=== PATIENT | female | born 1950 | race Caucasian/White ===

== ENCOUNTER 2023-03-01 18:30 | Inpatient (IN) | payer OTHER, SELFPAY ==
[2023-03-01 18:00] VITALS: BP 145/72; PULSE 85; RESP 20; TEMP 36.1; O2SAT 98
[2023-03-01 18:51] VITALS: BMI 24.5
--- NOTE | 2023-03-01 18:53 | PC.NURSE ---
Patient arrived from [facility] ED via EMS, vitals obtained, skin check completed, pt oriented to unit and introduced to staff reinforcement needed.
--- NOTE | 2023-03-01 21:18 | PC.ADMIT ---
Addendum entered by Prosper Robles RN 03/01/23 21:51: Patient took her medications without issues but was very hesitant for a blood sugar test and pulled back her finger after the stick. RN was able to get a drop of blood but there was a flow error on the glucometer and the patient declined a second stick. She is eating and drinking and not at risk for hypoglycemia. She appears to be wide awake and sitting on the edge of her bed. Trazadone administered to help her sleep. Will continue to monitor tonight, address any issues that may arrise, and re-evaluate care in the morning. Original Note: Admission assessment through use of a Cosmetics Supervisor. Patient speaks/ understands very limited [place]i. 72 yr old [place] Speaking female presented to [facility] via [facility] for continued Behavioral Health support. She has a medical hx of hypertension, DM, GERD, arthritis, fibromyalgia. Psychiatric hx of unspecified psychotic disorder, Paranoid Schizophrenia, Paranoid delusions, Auditory hallucinations, acute delerium with multiple inpatient psychiatric hospitalizations with medication non compliance. Patient has been reportedly increasingly paranoid and failing to thrive at home. Patients son Aquiles attempted to bring her in to [facility] for crisis eval but they deemed her non suicidal. Patient has visiting nurse a few times a week. She has been hallucinating and losing substantial weight. Family concerned for her well being. Upon admission, patient is sitting in her room, alert, agreeable to speak with. She appears well groomed, no odor and independent. Her skin looks intact. She is calm but appears gaurded and slightly suspicious. Will not answer personal questions due to the fact that everyone is listening although her roomate is in bed. Patient is oriented to self and month. She cannot answer where she is or where she lives except in an apartment . She states that she lives alone but that she has family who come see her. She cannot give any information as to her family members, phone numbers, who takes care of her at home etc. Her thoughts are disorganized. She appears to be a little paranoid and distracted. She states she smokes and cannot answer about nicotine replacement because there must be a place you can go to smoke here . She is ambulatory without assist, skin is intact. she is drinking water and requesting ice cream, food encouraged.
[2023-03-01] MEDS: Benztropine Mesylate 0.5 MG TABLET PO (21:42)
[2023-03-01] MEDS: risperiDONE 1 MG TABLET PO (21:42)
[2023-03-01] MEDS: traZODone HCL 50 MG TABLET PO (21:42)
[2023-03-02 06:00] VITALS: BP 123/62; PULSE 93; RESP 18; O2SAT 98
[2023-03-02] MEDS: Benztropine Mesylate 0.5 MG TABLET PO ×2 (08:46→20:50)
[2023-03-02] MEDS: risperiDONE 1 MG TABLET PO ×2 (08:46→20:50)
--- NOTE | 2023-03-02 08:57 | HO.PSYADMNOT ---
HPI Date of Service: 03/02/23 Chief Complaint: F29 Sources of Information: patient interviewed, chart reviewed and crisis/core team assessment reviewed HPI Subjective Notes: [place] Warning and Section 12B Narrative: The patient is a 72-year-old female with a past history of schizophrenia paranoid type who was referred to the emergency room of [facility] by her family since she was non compliant with her medications for at least 9 weeks. According to the crisis assessment, his family called crisis and stated the patient had not been taking her medications and she relapse of her psychotic symptoms elicited by disorganized behavior, hallucinations, responding to internal stimuli and unable to take care of herself. She was rushed to the emergency room of [facility], medically clear and transferred to crisis for assessment. While she was in the unit, the MD titrated slowly his Risperdal. On interview, the patient reports that she is feeling fine she looks pleasantly confused and stated that she has not been taking her medications since she lost her scripts. She had poor eye contact refused to engage too much in the conversation. She had thought blocking and she was internally preocupied. She admitted sporadic auditory hallucinations and paranoia. We could not get more collateral information at this moment. We will place the patient on 15 minutes checks and continue with his regular medications as per medication reconciliation form. We will try to gather more collateral information by his family. At this moment, the patient is on a Section 12 be and she has refused to sign the conditional voluntary yet. Past Psychiatric History: The patient has several admissions into the hospital for psychotic decompensation she carries a diagnosis of schizophrenia paranoid type. She receive outpatient services. Medical Evaluation Reviewed: Yes [facility] Family History: Denies Social History: The patient has good social support, her relatives called crisis but she lives alone. She has chronic mental illness. Substance History: Denies Trauma History: Refused to elaborate Diagnostics Vital Signs (24Hr): Vital Signs - 24 hr 03/01/23 18:00 Temperature 97.0 F Pulse Rate 85 Respiratory Rate 20 Blood Pressure 145/72 H Pulse Oximetry 98 Oxygen Delivery Method Room Air BMI result Body Mass Index 24.5 Meds/Allergies Allergies Allergies Allergy/AdvReac Type Severity Reaction Status Date / Time No Known Allergies Allergy Verified 03/01/23 17:58 Mental Status Exam Mental Status Exam Patient Appearance: Disheveled and Unkempt Patient Orientation: Person and Situation Level of Consciousness: Awake Patient Behavior: Guarded and Passive Mood Description: Withdrawn Affect Description: Constricted Patient Cognition Impaired: Yes Ability to Follow Directions: Good Speech Pattern: Clear Hallucinations: Auditory Delusions: Paranoid Ideation and Ideas of Reference Thought Process: Illogical and Distracted Thought Content: positive for [place], positive for Poverty of Content and positive for Thought Blocking Judgement: Poor Assessment & Plan Assessment & Plan (1) Schizophrenia: Status: Acute Code(s): F20.9 - Schizophrenia, unspecified Plan The patient is an elderly descent female with a prior history of schizophrenia who was brought into the facility from the emergency room of [facility] since she was noncompliant with medications for 9 weeks. According to the crisis assessment the patient had relapse on her psychotic symptoms with any inability to take care of herself, losing weight and poor safety awareness. Plan 1. Gather collateral information. The patient is a very poor historian and we will need to gather more collateral information from her family. 2. Continue Risperdal as prescribed. 3. Continue with medical workout. 4. Reassessment with results. 5. Continue regular observation. Patient educated on: diagnosis Informed Consent: further education needed Reason for continued inpatient stay Substantial Risk for: inability to function, rapid decompensation and med/psych decompensation Statement Statement: I have reviewed the history and physical and performed a pertinent examination on my patient. No changes have occurred unless specified. If the History and Physical was not performed prior to admission, the Hospitalist's service will be consulted for completing the admission physical. Time Spent With Patient Time: Total time managing care of this patient today __30__ minutes.
[2023-03-02 09:32] LABS: Cholesterol 198 mg/dL; HDL Cholesterol 38 mg/dL; LDL Cholesterol Calculated 121 mg/dl; Magnesium 2.2 mg/dL (1.6-2.6); Triglycerides 198 mg/dL
[2023-03-02 09:40] LABS: Estimated Average Glucose 126 mg/dL
[2023-03-02 10:10] LABS: Folate 11.8 ng/mL (> or = 4.0); Vitamin B12 436 pg/mL (200-900)
--- NOTE | 2023-03-02 11:21 | P.CONHOSP_ITS ---
History of Present Illness Data of Consult Service Date: 03/02/23 Primary Care Provider: Unknown Physician HPI Reason for consult: Admission H&P Pt is a 72-year-old female with a PMH significant for? who is admitted to [facility] for . Medical consult for admission H&P. ? Labs reviewed, significant for PMFSH Social History Household Members: Unknown / Unable to assess Housing: Apartment Unable to assess alcohol history related to: Unknown Patient Tobacco Use Status: Current someday Tobacco user Tobacco use type: Cigarette Smoked in Last 30 Days: Yes Patient Interested in Nicotine Replacement: No Patient Given Instructions on How to Stop Smoking: Yes Date Education Initiated: 03/01/23 Second Hand Smoke Exposure: Yes Use of substances other than those prescribed or required for medical reasons: No Currently Displaying Signs/Symptoms of Drug Intoxication Withdrawal: No Advance Directives: No Advance Directives Information Provided: Yes Do you have thoughts of harming others: None Do you have a plan to hurt others: No Plan Recently lost weight without trying: Unsure Nutrition Risks: No Nutritional Risk Patient : No Meds Allergies Allergy/AdvReac Type Severity Reaction Status Date / Time No Known Allergies Allergy Verified 03/01/23 17:58 Active Medications: Current Medications Acetaminophen (Acetaminophen 325 Mg Tablet) 650 mg PO Q6H PRN PRN Reason: Headache/Pain Mild Scale (1-3) Al Hydroxide/Mg Hydroxide (Magnesium Hydrox/Alum Hydrox 30 Ml Oral.Susp) 30 ml PO Q6H PRN PRN Reason: Heartburn/Nausea Benztropine Mesylate (Benztropine Mesylate 0.5 Mg Tablet) 0.5 mg PO BID COUNTS INCLUDE 234 BEDS AT THE [facility] Last Admin: 03/02/23 08:46 Dose: 0.5 mg Hydroxyzine HCl (Hydroxyzine Hcl 25 Mg Tablet) 25 mg PO Q6H PRN PRN Reason: Anxiety Magnesium Hydroxide (Milk Of Magnesia 30 Ml Oral.Susp) 30 ml PO DAILY PRN PRN Reason: Constipation Risperidone (Risperidone 1 Mg Tablet) 1 mg PO BID COUNTS INCLUDE 234 BEDS AT THE [facility] Last Admin: 03/02/23 08:46 Dose: 1 mg Trazodone HCl (Trazodone Hcl 50 Mg Tablet) 50 mg PO BEDTIME MRX1 PRN PRN Reason: Insomnia Last Admin: 03/01/23 21:42 Dose: 50 mg Physical Exam Vital Signs and Narrative: Vital Signs: Last Vital Signs Temp 97.0 F 03/01/23 18:00 Pulse 85 03/01/23 18:00 Resp 20 03/01/23 18:00 BP 145/72 H 03/01/23 18:00 Pulse Ox 98 03/01/23 18:00 O2 Del Method Room Air 03/01/23 18:00 BMI result Body Mass Index 24.5 Results Labs Labs: Laboratory Results - last 24 hr 03/02/23 03/02/23 03/02/23 09:02 09:02 09:02 Estimat Average Glucose 126 Hemoglobin A1c % 6.0 Magnesium 2.2 Triglycerides 198 Cholesterol 198 LDL Cholesterol, Calc 121 HDL Cholesterol 38 Vitamin B12 436 Folate 11.8 Assessment and Plan Time Spent With Patient Time: Total time managing care of this patient today ____ minutes.
--- NOTE | 2023-03-02 16:26 | PM.EVENT ---
Event Note Date of Service: 03/02/23 Event Note: Pt is a 72-year-old female with a PMH significant for?HTN, diabetes type 2, HLD, GERD, arthritis, and fibromyalgia who is admitted to [facility] for increased paranoia, hallucinations, delusions, and disorganized thinking. Patient has been noncompliant with psychotropic medication for the past 9 weeks. Patient declined medical history and physical. Says she was ?too tired? and did not want to speak to anyone. Patient stated she did not have any acute medical complaints at this time. Thank you for allowing us to participate in the care of this patient. Signing off at this time. Please re-consult if any acute medical issues arise.. Time Spent With Patient Time: Total time managing care of this patient today ____ minutes.
[2023-03-02 16:31] LABS: Glucose, Whole Blood 92 mg/dL (60-115)
[2023-03-02 18:00] VITALS: BP 117/61; PULSE 76; RESP 18; TEMP 36.4; O2SAT 95
[2023-03-02 20:24] LABS: Glucose, Whole Blood 116 mg/dL (60-115)
[2023-03-03] MEDS: traZODone HCL 50 MG TABLET PO ×2 (01:58→22:08)
[2023-03-03] MEDS: hydrOXYzine HCL 25 MG TABLET PO ×2 (01:58→22:08)
[2023-03-03 08:28] VITALS: BP 113/68; PULSE 106; RESP 20; TEMP 35.8; O2SAT 96
[2023-03-03] MEDS: risperiDONE 1 MG TABLET PO ×2 (08:53→22:08)
[2023-03-03] MEDS: Benztropine Mesylate 0.5 MG TABLET PO ×2 (08:53→22:08)
--- NOTE | 2023-03-03 11:19 | HO.PSYCHPN ---
Subjective Subjective Date of Service: 03/03/23 Reason For Visit: F29 Subjective Notes: Section 12B Interim History: The nursing staff reported the patient slept well last night she has been isolative most of the time in her room. On interview the patient denies side effects with the current medications she is on Risperdal 1 mg p.o. b.i.d.. We are going to try to gather collateral information. Mental Status Exam Mental Status Exam Patient Appearance: Well Grooomed and Appropriate Patient Orientation: Person and Situation Level of Consciousness: Awake and Appropriate Patient Behavior: Guarded and Passive Mood Description: Calm Affect Description: Constricted Patient Cognition Impaired: Yes Ability to Follow Directions: Good Speech Pattern: Clear and Soft-Spoken Hallucinations: Auditory Delusions: Paranoid Ideation and Ideas of Reference Thought Process: Distracted and Slowed Thinking Thought Content: positive for Poverty of Content and positive for Thought Blocking Judgement: Fair Diagnostics Vital Signs (24Hr): Vital Signs - 24 hr 03/02/23 18:00 03/03/23 08:28 Temperature 97.6 F 96.5 F L Pulse Rate 76 106 H Respiratory Rate 18 20 Blood Pressure 117/61 113/68 Pulse Oximetry 95 96 Oxygen Delivery Method Room Air Room Air BMI result Body Mass Index 24.5 Labs Labs: Laboratory Results - last 48 hr 03/02/23 03/02/23 03/02/23 09:02 09:02 09:02 POC Glucose Estimat Average Glucose 126 Hemoglobin A1c % 6.0 Magnesium 2.2 Triglycerides 198 Cholesterol 198 LDL Cholesterol, Calc 121 HDL Cholesterol 38 Vitamin B12 436 Folate 11.8 03/02/23 03/02/23 16:29 20:14 POC Glucose 92 116 H Estimat Average Glucose Hemoglobin A1c % Magnesium Triglycerides Cholesterol LDL Cholesterol, Calc HDL Cholesterol Vitamin B12 Folate Medications Medications Current Medications Acetaminophen (Acetaminophen 325 Mg Tablet) 650 mg PO Q6H PRN PRN Reason: Headache/Pain Mild Scale (1-3) Al Hydroxide/Mg Hydroxide (Magnesium Hydrox/Alum Hydrox 30 Ml Oral.Susp) 30 ml PO Q6H PRN PRN Reason: Heartburn/Nausea Benztropine Mesylate (Benztropine Mesylate 0.5 Mg Tablet) 0.5 mg PO BID ASUNCION Last Admin: 03/03/23 08:53 Dose: 0.5 mg Hydroxyzine HCl (Hydroxyzine Hcl 25 Mg Tablet) 25 mg PO Q6H PRN PRN Reason: Anxiety Last Admin: 03/03/23 01:58 Dose: 25 mg Magnesium Hydroxide (Milk Of Magnesia 30 Ml Oral.Susp) 30 ml PO DAILY PRN PRN Reason: Constipation Risperidone (Risperidone 1 Mg Tablet) 1 mg PO BID ASUNCION Last Admin: 03/03/23 08:53 Dose: 1 mg Trazodone HCl (Trazodone Hcl 50 Mg Tablet) 50 mg PO BEDTIME MRX1 PRN PRN Reason: Insomnia Last Admin: 03/03/23 01:58 Dose: 50 mg Allergies Allergies Allergy/AdvReac Type Severity Reaction Status Date / Time No Known Allergies Allergy Verified 03/01/23 17:58 Assessment & Plan Assessment & Plan (1) Schizophrenia: Status: Acute Code(s): F20.9 - Schizophrenia, unspecified Plan The patient is an elderly descent female with a prior history of schizophrenia who was brought into the facility from the emergency room of [facility] since she was noncompliant with medications for 9 weeks. According to the crisis assessment the patient had relapse on her psychotic symptoms with any inability to take care of herself, losing weight and poor safety awareness. Plan 1. Gather collateral information. The patient is a very poor historian and we will need to gather more collateral information from her family. 2. Continue Risperdal as prescribed. We are going to increase it in a few days. 3. Continue with medical workout. 4. Reassessment with results. 5. Continue regular observation. Reason for continued inpatient stay Substantial Risk for: inability to function, rapid decompensation and med/psych decompensation Time Spent With Patient Time: Total time managing care of this patient today _20___ minutes.
[2023-03-03 21:56] VITALS: BP 95/53; PULSE 90; RESP 18; TEMP 36.1; O2SAT 97
[2023-03-03] MEDS: Acetaminophen 325 MG TABLET 650 MG PO (22:09)
[2023-03-03 22:13] VITALS: BP 121/57; PULSE 73
[2023-03-04 09:09] VITALS: BP 113/66; PULSE 82; RESP 16; TEMP 36.6; O2SAT 99
[2023-03-04] MEDS: risperiDONE 1 MG TABLET PO ×2 (09:10→21:20)
[2023-03-04] MEDS: Benztropine Mesylate 0.5 MG TABLET PO ×2 (09:10→21:20)
--- NOTE | 2023-03-04 11:55 | HO.PSYCHPN ---
Subjective Subjective Date of Service: 03/04/23 Reason For Visit: F29 Subjective Notes: Section 12B Interim History: Patient was seen and discussed in rounds. Records and plans were reviewed. She was seen with the help of an historic interpreter. She has been irritable at times but mostly quiet. She has some self dialogue. She has been constipated and I will order lactulose. No other changes were made Review of Systems Review of Systems Constipation Yes all other systems are reviewed and are negative Mental Status Exam Mental Status Exam Patient Appearance: Well Grooomed and Appropriate Patient Orientation: Person and Situation Level of Consciousness: Awake and Appropriate Patient Behavior: Guarded and Passive Mood Description: Calm Affect Description: Constricted Patient Cognition Impaired: Yes Ability to Follow Directions: Good Speech Pattern: Clear and Soft-Spoken Hallucinations: Auditory Delusions: Paranoid Ideation and Ideas of Reference Thought Process: Distracted and Slowed Thinking Thought Content: positive for Poverty of Content and positive for Thought Blocking Judgement: Fair Diagnostics Vital Signs (24Hr): Vital Signs - 24 hr 03/03/23 21:56 03/03/23 22:13 03/04/23 09:09 Temperature 96.9 F 97.9 F Pulse Rate 90 73 82 Respiratory Rate 18 16 Blood Pressure 95/53 L 121/57 L 113/66 Pulse Oximetry 97 99 Oxygen Delivery Method Room Air Room Air BMI result Body Mass Index 24.5 Labs Labs: Laboratory Results - last 48 hr 03/02/23 03/02/23 16:29 20:14 POC Glucose 92 116 H Medications Medications Current Medications Acetaminophen (Acetaminophen 325 Mg Tablet) 650 mg PO Q6H PRN PRN Reason: Headache/Pain Mild Scale (1-3) Last Admin: 03/03/23 22:09 Dose: 650 mg Al Hydroxide/Mg Hydroxide (Magnesium Hydrox/Alum Hydrox 30 Ml Oral.Susp) 30 ml PO Q6H PRN PRN Reason: Heartburn/Nausea Benztropine Mesylate (Benztropine Mesylate 0.5 Mg Tablet) 0.5 mg PO BID ASUNCION Last Admin: 03/04/23 09:10 Dose: 0.5 mg Hydroxyzine HCl (Hydroxyzine Hcl 25 Mg Tablet) 25 mg PO Q6H PRN PRN Reason: Anxiety Last Admin: 03/03/23 22:08 Dose: 25 mg Magnesium Hydroxide (Milk Of Magnesia 30 Ml Oral.Susp) 30 ml PO DAILY PRN PRN Reason: Constipation Risperidone (Risperidone 1 Mg Tablet) 1 mg PO BID ASUNCION Last Admin: 03/04/23 09:10 Dose: 1 mg Trazodone HCl (Trazodone Hcl 50 Mg Tablet) 50 mg PO BEDTIME MRX1 PRN PRN Reason: Insomnia Last Admin: 03/03/23 22:08 Dose: 50 mg Allergies Allergies Allergy/AdvReac Type Severity Reaction Status Date / Time No Known Allergies Allergy Verified 03/01/23 17:58 Assessment & Plan Assessment & Plan (1) Schizophrenia: Status: Acute Code(s): F20.9 - Schizophrenia, unspecified Plan The patient is an elderly descent female with a prior history of schizophrenia who was brought into the facility from the emergency room of [facility] since she was noncompliant with medications for 9 weeks. According to the crisis assessment the patient had relapse on her psychotic symptoms with any inability to take care of herself, losing weight and poor safety awareness. 03/04: Continue current regimen and plans. Add lactulose 15 cc daily for 3 days Plan 1. Gather collateral information. The patient is a very poor historian and we will need to gather more collateral information from her family. 2. Continue Risperdal as prescribed. We are going to increase it in a few days. 3. Continue with medical workout. 4. Reassessment with results. 5. Continue regular observation. Reason for continued inpatient stay Substantial Risk for: inability to function and med/psych decompensation Time Spent With Patient Time: Total time managing care of this patient today ____ minutes.
[2023-03-04 20:15] VITALS: BP 130/80; PULSE 86; RESP 16; TEMP 36.1; O2SAT 97
[2023-03-05 06:00] VITALS: BP 108/60; PULSE 88; RESP 16; TEMP 36.7; O2SAT 99
[2023-03-05] MEDS: Benztropine Mesylate 0.5 MG TABLET PO ×2 (08:42→21:00)
[2023-03-05] MEDS: risperiDONE 1 MG TABLET PO ×2 (08:42→21:00)
--- NOTE | 2023-03-05 11:45 | P.PNPSI_ITS ---
Subjective Subjective Date of Service: 03/05/23 Reason For Visit: F29 Subjective Notes: Section 12B Interim History: Patient was seen and discussed in rounds. Records and plans were reviewed. She was seen with the help of an refrigeration supervisor. She continues to be somewhat paranoid and suspicious. She is responding to self stimuli and has self dialogue. She is irritable at times. Affect is flat. Eating and sleeping adequately. No behavioral issues. No changes were made today Review of Systems Review of Systems Yes Unobtainable due to mental status Mental Status Exam Mental Status Exam Patient Appearance: Well Grooomed and Appropriate Patient Orientation: Person and Situation Level of Consciousness: Awake and Appropriate Patient Behavior: Guarded and Passive Mood Description: Calm Affect Description: Constricted Patient Cognition Impaired: Yes Ability to Follow Directions: Good Speech Pattern: Clear and Soft-Spoken Hallucinations: Auditory Delusions: Paranoid Ideation and Ideas of Reference Thought Process: Distracted and Slowed Thinking Thought Content: positive for Poverty of Content and positive for Thought Blocking Judgement: Fair Diagnostics Vital Signs (24Hr): Vital Signs - 24 hr 03/04/23 20:15 03/05/23 06:00 Temperature 97 F 98.1 F Pulse Rate 86 88 Respiratory Rate 16 16 Blood Pressure 130/80 108/60 Pulse Oximetry 97 99 Oxygen Delivery Method Room Air Room Air BMI result Body Mass Index 24.5 Medications Medications Current Medications Acetaminophen (Acetaminophen 325 Mg Tablet) 650 mg PO Q6H PRN PRN Reason: Headache/Pain Mild Scale (1-3) Last Admin: 03/03/23 22:09 Dose: 650 mg Al Hydroxide/Mg Hydroxide (Magnesium Hydrox/Alum Hydrox 30 Ml Oral.Susp) 30 ml PO Q6H PRN PRN Reason: Heartburn/Nausea Benztropine Mesylate (Benztropine Mesylate 0.5 Mg Tablet) 0.5 mg PO BID ASUNCION Last Admin: 03/05/23 08:42 Dose: 0.5 mg Hydroxyzine HCl (Hydroxyzine Hcl 25 Mg Tablet) 25 mg PO Q6H PRN PRN Reason: Anxiety Last Admin: 03/03/23 22:08 Dose: 25 mg Lactulose (Lactulose 20 Gm/30 Ml Solution) 10 gm PO DAILY ASUNCION Stop: 03/07/23 12:59 Last Admin: 03/05/23 08:41 Dose: Not Given Magnesium Hydroxide (Milk Of Magnesia 30 Ml Oral.Susp) 30 ml PO DAILY PRN PRN Reason: Constipation Risperidone (Risperidone 1 Mg Tablet) 1 mg PO BID ASUNCION Last Admin: 03/05/23 08:42 Dose: 1 mg Trazodone HCl (Trazodone Hcl 50 Mg Tablet) 50 mg PO BEDTIME MRX1 PRN PRN Reason: Insomnia Last Admin: 03/03/23 22:08 Dose: 50 mg Allergies Allergies Allergy/AdvReac Type Severity Reaction Status Date / Time No Known Allergies Allergy Verified 03/01/23 17:58 Assessment & Plan Assessment & Plan (1) Schizophrenia: Status: Acute Code(s): F20.9 - Schizophrenia, unspecified Plan The patient is an elderly descent female with a prior history of schizophrenia who was brought into the facility from the emergency room of [facility] since she was noncompliant with medications for 9 weeks. According to the crisis assessment the patient had relapse on her psychotic symptoms with any inability to take care of herself, losing weight and poor safety awareness. 03/04: Continue current regimen and plans. Add lactulose 15 cc daily for 3 days Plan 1. Gather collateral information. The patient is a very poor historian and we will need to gather more collateral information from her family. 2. Continue Risperdal as prescribed. We are going to increase it in a few days. 3. Continue with medical workout. 4. Reassessment with results. 5. Continue regular observation. 03/05: Continue current plans and regimen Reason for continued inpatient stay Substantial Risk for: inability to function Time Spent With Patient Time: Total time managing care of this patient today ____ minutes.
[2023-03-05 18:00] VITALS: BP 128/74; PULSE 88; RESP 16; TEMP 35.8; O2SAT 95
[2023-03-06 07:57] VITALS: PULSE 102; RESP 18; TEMP 36.2; O2SAT 95
[2023-03-06] MEDS: hydrOXYzine HCL 25 MG TABLET PO (08:40)
[2023-03-06] MEDS: Acetaminophen 325 MG TABLET 650 MG PO (08:40)
[2023-03-06] MEDS: Benztropine Mesylate 0.5 MG TABLET PO ×2 (08:40→20:08)
[2023-03-06] MEDS: risperiDONE 1 MG TABLET PO (08:40)
[2023-03-06] MEDS: Loperamide HCl 2 MG CAPSULE PO (09:27)
--- NOTE | 2023-03-06 14:49 | HO.PSYCHPN ---
Subjective Subjective Date of Service: 03/06/23 Reason For Visit: F29 Subjective Notes: Section 7, Section 8 and Section 12B Interim History: The nursing staff reported the patient had been hostile in groups, reactive and irritable of times suspicious. The staff has noticed that she has self dialogue some response to internal stimuli. The director social welfare reported that her son reported that she had been off medications for 9 weeks and she presently gets admitted in the same presentation. Today the staff tried to approach her and try to sign a conditional voluntary but she refused. She had been fully compliant with treatment eating well and sleeping well but she has refused to sign any papers so we are finding for Section 7 and 8. On interview the patient denies new symptoms still psychotic and internally preoccupied but easily redirectable. Mental Status Exam Mental Status Exam Patient Appearance: Well Grooomed and Appropriate Patient Orientation: Person and Situation Level of Consciousness: Awake Patient Behavior: Guarded, Cooperative and Passive Mood Description: Withdrawn Affect Description: Labile Patient Cognition Impaired: Yes Ability to Follow Directions: Good Speech Pattern: Clear Hallucinations: Auditory Delusions: Paranoid Ideation Thought Process: Illogical and Distracted Thought Content: positive for [place] Judgement: Poor Diagnostics Vital Signs (24Hr): Vital Signs - 24 hr 03/05/23 18:00 03/06/23 07:57 Temperature 96.5 F L 97.1 F Pulse Rate 88 102 H Respiratory Rate 16 18 Blood Pressure 128/74 Pulse Oximetry 95 95 Oxygen Delivery Method Room Air Room Air BMI result Body Mass Index 24.5 Medications Medications Current Medications Acetaminophen (Acetaminophen 325 Mg Tablet) 650 mg PO Q6H PRN PRN Reason: Headache/Pain Mild Scale (1-3) Last Admin: 03/06/23 08:40 Dose: 650 mg Al Hydroxide/Mg Hydroxide (Magnesium Hydrox/Alum Hydrox 30 Ml Oral.Susp) 30 ml PO Q6H PRN PRN Reason: Heartburn/Nausea Benztropine Mesylate (Benztropine Mesylate 0.5 Mg Tablet) 0.5 mg PO BID ASUNCION Last Admin: 03/06/23 08:40 Dose: 0.5 mg Hydroxyzine HCl (Hydroxyzine Hcl 25 Mg Tablet) 25 mg PO Q6H PRN PRN Reason: Anxiety Last Admin: 03/06/23 08:40 Dose: 25 mg Lactulose (Lactulose 20 Gm/30 Ml Solution) 10 gm PO DAILY ASUNCION Stop: 03/07/23 12:59 Last Admin: 03/06/23 08:42 Dose: Not Given Loperamide HCl (Loperamide Hcl 2 Mg Capsule) 2 mg PO Q6H PRN PRN Reason: Diarrhea Last Admin: 03/06/23 09:27 Dose: 2 mg Magnesium Hydroxide (Milk Of Magnesia 30 Ml Oral.Susp) 30 ml PO DAILY PRN PRN Reason: Constipation Risperidone (Risperidone 1 Mg Tablet) 1 mg PO BID ASUNCION Last Admin: 03/06/23 08:40 Dose: 1 mg Trazodone HCl (Trazodone Hcl 50 Mg Tablet) 50 mg PO BEDTIME MRX1 PRN PRN Reason: Insomnia Last Admin: 03/03/23 22:08 Dose: 50 mg Allergies Allergies Allergy/AdvReac Type Severity Reaction Status Date / Time No Known Allergies Allergy Verified 03/01/23 17:58 Assessment & Plan Assessment & Plan (1) Schizophrenia: Status: Acute Code(s): F20.9 - Schizophrenia, unspecified Plan The patient is an elderly descent female with a prior history of schizophrenia who was brought into the facility from the emergency room of [facility] since she was noncompliant with medications for 9 weeks. According to the crisis assessment the patient had relapse on her psychotic symptoms with any inability to take care of herself, losing weight and poor safety awareness. 03/04: Continue current regimen and plans. Add lactulose 15 cc daily for 3 days Plan 1. Gather collateral information. The patient is a very poor historian and we will need to gather more collateral information from her family. 2. Continue Risperdal as prescribed. We are going to increase it in a few days. On of 0 7 very increase Risperdal to 2 mg p.o. b.i.d. 3. Continue with medical workout. 4. Reassessment with results. 5. Continue regular observation. 6. Filed for section 7 and 8 since the patient has refused to sign CV. Reason for continued inpatient stay Substantial Risk for: inability to function, rapid decompensation and med/psych decompensation Time Spent With Patient Time: Total time managing care of this patient today __20__ minutes.
[2023-03-06 20:05] VITALS: BP 120/88; PULSE 92; RESP 17; TEMP 36.9; O2SAT 98
[2023-03-06] MEDS: risperiDONE 2 MG TABLET PO (20:07)
[2023-03-07 06:00] VITALS: BP 108/62; PULSE 86; RESP 16; O2SAT 96
[2023-03-07] MEDS: Benztropine Mesylate 0.5 MG TABLET PO ×2 (08:19→20:41)
[2023-03-07] MEDS: risperiDONE 2 MG TABLET PO (08:19)
--- NOTE | 2023-03-07 13:40 | P.PNPSI_ITS ---
Subjective Subjective Date of Service: 03/07/23 Reason For Visit: F29 Subjective Notes: Section 7 and Section 8 Interim History: The nursing staff reported the patient has been seen self dialogue in responding to internal stimuli, she had been hostile and yelling at times. According to the chart the patient was on Risperdal 3 mg p.o. b.i.d. and she was without medications for nearly 9 weeks. We started on 1 mg p.o. b.i.d. and increase it up to 2 mg p.o. b.i.d. yesterday. We will keep on the same dose. On interview the patient denies new symptoms, hostile and internally preoccupied still psychotic. Mental Status Exam Mental Status Exam Patient Appearance: Well Grooomed and Appropriate Patient Orientation: Person and Situation Level of Consciousness: Awake and Appropriate Patient Behavior: Guarded and Passive Mood Description: Withdrawn Affect Description: Constricted Patient Cognition Impaired: Yes Ability to Follow Directions: Good Speech Pattern: Clear Hallucinations: Auditory Delusions: Paranoid Ideation and Ideas of Reference Thought Process: Distracted and Slowed Thinking Thought Content: positive for [place] and positive for Poverty of Content Judgement: Fair Diagnostics Vital Signs (24Hr): Vital Signs - 24 hr 03/06/23 20:05 03/07/23 06:00 Temperature 98.4 F Pulse Rate 92 86 Respiratory Rate 17 16 Blood Pressure 120/88 108/62 Pulse Oximetry 98 96 Oxygen Delivery Method Room Air Room Air BMI result Body Mass Index 24.5 Medications Medications Current Medications Acetaminophen (Acetaminophen 325 Mg Tablet) 650 mg PO Q6H PRN PRN Reason: Headache/Pain Mild Scale (1-3) Last Admin: 03/06/23 08:40 Dose: 650 mg Al Hydroxide/Mg Hydroxide (Magnesium Hydrox/Alum Hydrox 30 Ml Oral.Susp) 30 ml PO Q6H PRN PRN Reason: Heartburn/Nausea Benztropine Mesylate (Benztropine Mesylate 0.5 Mg Tablet) 0.5 mg PO BID ASUNCION Last Admin: 03/07/23 08:19 Dose: 0.5 mg Hydroxyzine HCl (Hydroxyzine Hcl 25 Mg Tablet) 25 mg PO Q6H PRN PRN Reason: Anxiety Last Admin: 03/06/23 08:40 Dose: 25 mg Loperamide HCl (Loperamide Hcl 2 Mg Capsule) 2 mg PO Q6H PRN PRN Reason: Diarrhea Last Admin: 03/06/23 09:27 Dose: 2 mg Magnesium Hydroxide (Milk Of Magnesia 30 Ml Oral.Susp) 30 ml PO DAILY PRN PRN Reason: Constipation Risperidone (Risperidone 3 Mg Tablet) 3 mg PO BID ASUNCION Last Admin: 03/07/23 08:59 Dose: Not Given Trazodone HCl (Trazodone Hcl 50 Mg Tablet) 50 mg PO BEDTIME MRX1 PRN PRN Reason: Insomnia Last Admin: 03/03/23 22:08 Dose: 50 mg Allergies Allergies Allergy/AdvReac Type Severity Reaction Status Date / Time No Known Allergies Allergy Verified 03/01/23 17:58 Assessment & Plan Assessment & Plan (1) Schizophrenia: Status: Acute Code(s): F20.9 - Schizophrenia, unspecified Plan The patient is an elderly descent female with a prior history of schizophrenia who was brought into the facility from the emergency room of [facility] since she was noncompliant with medications for 9 weeks. According to the crisis assessment the patient had relapse on her psychotic symptoms with any inability to take care of herself, losing weight and poor safety awareness. 03/04: Continue current regimen and plans. Add lactulose 15 cc daily for 3 days Plan 1. Gather collateral information. The patient is a very poor historian and we will need to gather more collateral information from her family. 2. Continue Risperdal as prescribed. We are going to increase it in a few days. On of 0 7 very increase Risperdal to 2 mg p.o. b.i.d. 3. Continue with medical workout. 4. Reassessment with results. 5. Continue regular observation. 6. Filed for section 7 and 8 since the patient has refused to sign CV. Reason for continued inpatient stay Substantial Risk for: inability to function, rapid decompensation and med/psych decompensation Time Spent With Patient Time: Total time managing care of this patient today _20___ minutes.
[2023-03-07] MEDS: risperiDONE 3 MG TABLET PO (20:41)
[2023-03-08 06:00] VITALS: BP 120/63; PULSE 84; RESP 18; TEMP 35.5; O2SAT 98
[2023-03-08] MEDS: risperiDONE 3 MG TABLET PO ×2 (08:38→21:20)
[2023-03-08] MEDS: Benztropine Mesylate 0.5 MG TABLET PO ×2 (08:38→21:20)
[2023-03-08] MEDS: Loperamide HCl 2 MG CAPSULE PO (09:10)
--- NOTE | 2023-03-08 10:25 | P.PNPSI_ITS ---
Subjective Subjective Date of Service: 03/08/23 Reason For Visit: F29 Subjective Notes: Section 7 and Section 8 Interim History: The nursing staff reported the patient has been isolative, self dialogue in at times. She is only oriented to self and she showed a flat affect. She slept well last night. The occupational therapist reported that she had angry outbursts at times and she has not participating any groups. We have a court hearing for this since she is refusing to sign the conditional voluntary or signing any papers. Even though she is taking her medications we will ask for continuance. On interview the patient remains paranoid and hostile at times. According to her son's report, the patient takes a few days in her medications to go back to her baseline. Mental Status Exam Mental Status Exam Patient Appearance: Well Grooomed and Appropriate Patient Orientation: Person and Situation Level of Consciousness: Awake and Appropriate Patient Behavior: Guarded and Passive Mood Description: Withdrawn Affect Description: Constricted Patient Cognition Impaired: Yes Ability to Follow Directions: Good Speech Pattern: Clear Hallucinations: Auditory Delusions: Paranoid Ideation Thought Process: Disoriented and Illogical Thought Content: positive for [place], positive for Poverty of Content and positive for Thought Blocking Judgement: Fair Diagnostics Vital Signs (24Hr): Vital Signs - 24 hr 03/08/23 06:00 Temperature 95.9 F L Pulse Rate 84 Respiratory Rate 18 Blood Pressure 120/63 Pulse Oximetry 98 Oxygen Delivery Method Room Air BMI result Body Mass Index 24.5 Medications Medications Current Medications Acetaminophen (Acetaminophen 325 Mg Tablet) 650 mg PO Q6H PRN PRN Reason: Headache/Pain Mild Scale (1-3) Last Admin: 03/06/23 08:40 Dose: 650 mg Al Hydroxide/Mg Hydroxide (Magnesium Hydrox/Alum Hydrox 30 Ml Oral.Susp) 30 ml PO Q6H PRN PRN Reason: Heartburn/Nausea Benztropine Mesylate (Benztropine Mesylate 0.5 Mg Tablet) 0.5 mg PO BID ASUNCION Last Admin: 03/08/23 08:38 Dose: 0.5 mg Hydroxyzine HCl (Hydroxyzine Hcl 25 Mg Tablet) 25 mg PO Q6H PRN PRN Reason: Anxiety Last Admin: 03/06/23 08:40 Dose: 25 mg Loperamide HCl (Loperamide Hcl 2 Mg Capsule) 2 mg PO Q6H PRN PRN Reason: Diarrhea Last Admin: 03/08/23 09:10 Dose: 2 mg Magnesium Hydroxide (Milk Of Magnesia 30 Ml Oral.Susp) 30 ml PO DAILY PRN PRN Reason: Constipation Risperidone (Risperidone 3 Mg Tablet) 3 mg PO BID ASUNCION Last Admin: 03/08/23 08:38 Dose: 3 mg Trazodone HCl (Trazodone Hcl 50 Mg Tablet) 50 mg PO BEDTIME MRX1 PRN PRN Reason: Insomnia Last Admin: 03/03/23 22:08 Dose: 50 mg Allergies Allergies Allergy/AdvReac Type Severity Reaction Status Date / Time No Known Allergies Allergy Verified 03/01/23 17:58 Assessment & Plan Assessment & Plan (1) Schizophrenia: Status: Acute Code(s): F20.9 - Schizophrenia, unspecified Plan The patient is an elderly descent female with a prior history of schizophrenia who was brought into the facility from the emergency room of [facility] since she was noncompliant with medications for 9 weeks. According to the crisis assessment the patient had relapse on her psychotic symptoms with any inability to take care of herself, losing weight and poor safety awareness. 03/04: Continue current regimen and plans. Add lactulose 15 cc daily for 3 days Plan 1. Gather collateral information. The patient is a very poor historian and we will need to gather more collateral information from her family. 2. Continue Risperdal as prescribed. We are going to increase it in a few days. On of 0 7 very increase Risperdal to 2 mg p.o. b.i.d. later on, almost 8 we creased up to 3 mg p.o. b.i.d. as per med reconciliation form. 3. Continue with medical workout. 4. Reassessment with results. 5. Continue regular observation. 6. Filed for section 7 and 8 since the patient has refused to sign CV. Reason for continued inpatient stay Substantial Risk for: inability to function, rapid decompensation and med/psych decompensation Time Spent With Patient Time: Total time managing care of this patient today __20__ minutes.
[2023-03-08 20:10] VITALS: BP 116/67; PULSE 91; RESP 18; TEMP 36.4; O2SAT 97
[2023-03-09 08:25] VITALS: BP 119/67; PULSE 85; RESP 20; TEMP 36.1; O2SAT 98
[2023-03-09] MEDS: Benztropine Mesylate 0.5 MG TABLET PO ×2 (08:25→20:23)
[2023-03-09] MEDS: risperiDONE 3 MG TABLET PO ×2 (08:25→20:23)
[2023-03-09] MEDS: Loperamide HCl 2 MG CAPSULE PO (11:40)
--- NOTE | 2023-03-09 13:05 | P.PNPSI_ITS ---
Subjective Subjective Date of Service: 03/09/23 Reason For Visit: F29 Subjective Notes: Section 7 and Section 8 Interim History: The nursing staff reported the patient has been isolative in her room, medication compliant. Even though she looks angry and oppositional whenever though patient therapist encouraged her to go to groups. Today we are going to court at 14:00 for Section 7 and 8 since the patient had been refusing to sign her conditional voluntary. She does not have a healthcare proxy that we could invoked. The social media campaign manager reported that she has [facility] services and she can be discharged with [facility] another ancillary services. On interview the patient remains angry, hostile but compliant with treatment. Mental Status Exam Mental Status Exam Patient Appearance: Well Grooomed and Appropriate Patient Orientation: Person and Situation Level of Consciousness: Awake and Appropriate Patient Behavior: Guarded and Passive Mood Description: Withdrawn Affect Description: Constricted Patient Cognition Impaired: Yes Ability to Follow Directions: Good Speech Pattern: Clear Hallucinations: None Delusions: Not Present Thought Process: Distracted Thought Content: positive for [place] Judgement: Fair Diagnostics Vital Signs (24Hr): Vital Signs - 24 hr 03/08/23 20:10 Temperature 97.5 F Pulse Rate 91 Respiratory Rate 18 Blood Pressure 116/67 Pulse Oximetry 97 Oxygen Delivery Method Room Air BMI result Body Mass Index 24.5 Medications Medications Current Medications Acetaminophen (Acetaminophen 325 Mg Tablet) 650 mg PO Q6H PRN PRN Reason: Headache/Pain Mild Scale (1-3) Last Admin: 03/06/23 08:40 Dose: 650 mg Al Hydroxide/Mg Hydroxide (Magnesium Hydrox/Alum Hydrox 30 Ml Oral.Susp) 30 ml PO Q6H PRN PRN Reason: Heartburn/Nausea Benztropine Mesylate (Benztropine Mesylate 0.5 Mg Tablet) 0.5 mg PO BID ASUNCION Last Admin: 03/09/23 08:25 Dose: 0.5 mg Hydroxyzine HCl (Hydroxyzine Hcl 25 Mg Tablet) 25 mg PO Q6H PRN PRN Reason: Anxiety Last Admin: 03/06/23 08:40 Dose: 25 mg Loperamide HCl (Loperamide Hcl 2 Mg Capsule) 2 mg PO Q6H PRN PRN Reason: Diarrhea Last Admin: 03/09/23 11:40 Dose: 2 mg Magnesium Hydroxide (Milk Of Magnesia 30 Ml Oral.Susp) 30 ml PO DAILY PRN PRN Reason: Constipation Risperidone (Risperidone 3 Mg Tablet) 3 mg PO BID ASUNCION Last Admin: 03/09/23 08:25 Dose: 3 mg Trazodone HCl (Trazodone Hcl 50 Mg Tablet) 50 mg PO BEDTIME MRX1 PRN PRN Reason: Insomnia Last Admin: 03/03/23 22:08 Dose: 50 mg Allergies Allergies Allergy/AdvReac Type Severity Reaction Status Date / Time No Known Allergies Allergy Verified 03/01/23 17:58 Assessment & Plan Assessment & Plan (1) Schizophrenia: Status: Acute Code(s): F20.9 - Schizophrenia, unspecified Plan The patient is an elderly descent female with a prior history of schizophrenia who was brought into the facility from the emergency room of [facility] since she was noncompliant with medications for 9 weeks. According to the crisis assessment the patient had relapse on her psychotic symptoms with any inability to take care of herself, losing weight and poor safety awareness. 03/04: Continue current regimen and plans. Add lactulose 15 cc daily for 3 days Plan 1. Gather collateral information. The patient is a very poor historian and we will need to gather more collateral information from her family. 2. Continue Risperdal as prescribed. We are going to increase it in a few days. On of 0 7 very increase Risperdal to 2 mg p.o. b.i.d. later on, almost 8 we creased up to 3 mg p.o. b.i.d. as per med reconciliation form. 3. Continue with medical workout. 4. Reassessment with results. 5. Continue regular observation. 6. Filed for section 7 and 8 since the patient has refused to sign CV. Reason for continued inpatient stay Substantial Risk for: inability to function, rapid decompensation and med/psych decompensation Time Spent With Patient Time: Total time managing care of this patient today __20__ minutes.
[2023-03-09] MEDS: hydrOXYzine HCL 25 MG TABLET PO (16:57)
[2023-03-09 18:00] VITALS: BP 117/60; PULSE 95; RESP 18; TEMP 36.6; O2SAT 97
[2023-03-10 08:10] VITALS: BP 113/63; PULSE 89; RESP 20; TEMP 36.1; O2SAT 98
[2023-03-10] MEDS: Benztropine Mesylate 0.5 MG TABLET PO ×2 (08:11→20:40)
[2023-03-10] MEDS: risperiDONE 3 MG TABLET PO ×2 (08:12→20:40)
[2023-03-10] MEDS: hydrOXYzine HCL 25 MG TABLET PO (08:12)
--- NOTE | 2023-03-10 13:00 | HO.PSYCHPN ---
Subjective Subjective Date of Service: 03/10/23 Reason For Visit: F29 Subjective Notes: Section 7 and Section 8 Interim History: The nursing staff reported the patient had been irritable at times, she had been asking for her medication for Hypercholesteremia. The staff has noticed that the patient has been following a peer and provoking her at times. On interview the patient was hostile, I offer her Invega Bushra but she was not interested. We will keep on Risperdal 3 mg p.o. b.i.d.. Mental Status Exam Mental Status Exam Patient Appearance: Well Grooomed and Appropriate Patient Orientation: Person and Situation Level of Consciousness: Awake and Appropriate Patient Behavior: Guarded and Passive Mood Description: Withdrawn Affect Description: Constricted Patient Cognition Impaired: Yes Ability to Follow Directions: Good Speech Pattern: Clear Hallucinations: Auditory Delusions: Paranoid Ideation Thought Process: Illogical and Distracted Thought Content: positive for [place], positive for [place] and positive for Poverty of Content Judgement: Fair Diagnostics Vital Signs (24Hr): Vital Signs - 24 hr 03/09/23 18:00 03/10/23 08:10 Temperature 97.8 F 97.0 F Pulse Rate 95 89 Respiratory Rate 18 20 Blood Pressure 117/60 113/63 Pulse Oximetry 97 98 Oxygen Delivery Method Room Air Room Air BMI result Body Mass Index 24.5 Medications Medications Current Medications Acetaminophen (Acetaminophen 325 Mg Tablet) 650 mg PO Q6H PRN PRN Reason: Headache/Pain Mild Scale (1-3) Last Admin: 03/06/23 08:40 Dose: 650 mg Al Hydroxide/Mg Hydroxide (Magnesium Hydrox/Alum Hydrox 30 Ml Oral.Susp) 30 ml PO Q6H PRN PRN Reason: Heartburn/Nausea Atorvastatin Calcium (Atorvastatin Calcium 10 Mg Tablet) 10 mg PO BEDTIME ASUNCION Benztropine Mesylate (Benztropine Mesylate 0.5 Mg Tablet) 0.5 mg PO BID ASUNCION Last Admin: 03/10/23 08:11 Dose: 0.5 mg Hydroxyzine HCl (Hydroxyzine Hcl 25 Mg Tablet) 25 mg PO Q6H PRN PRN Reason: Anxiety Last Admin: 03/10/23 08:12 Dose: 25 mg Loperamide HCl (Loperamide Hcl 2 Mg Capsule) 2 mg PO Q6H PRN PRN Reason: Diarrhea Last Admin: 03/09/23 11:40 Dose: 2 mg Magnesium Hydroxide (Milk Of Magnesia 30 Ml Oral.Susp) 30 ml PO DAILY PRN PRN Reason: Constipation Risperidone (Risperidone 3 Mg Tablet) 3 mg PO BID ASUNCION Last Admin: 03/10/23 08:12 Dose: 3 mg Trazodone HCl (Trazodone Hcl 50 Mg Tablet) 50 mg PO BEDTIME MRX1 PRN PRN Reason: Insomnia Last Admin: 03/03/23 22:08 Dose: 50 mg Allergies Allergies Allergy/AdvReac Type Severity Reaction Status Date / Time No Known Allergies Allergy Verified 03/01/23 17:58 Assessment & Plan Assessment & Plan (1) Schizophrenia: Status: Acute Code(s): F20.9 - Schizophrenia, unspecified Plan The patient is an elderly descent female with a prior history of schizophrenia who was brought into the facility from the emergency room of [facility] since she was noncompliant with medications for 9 weeks. According to the crisis assessment the patient had relapse on her psychotic symptoms with any inability to take care of herself, losing weight and poor safety awareness. 03/04: Continue current regimen and plans. Add lactulose 15 cc daily for 3 days Plan 1. Gather collateral information. The patient is a very poor historian and we will need to gather more collateral information from her family. 2. Continue Risperdal as prescribed. We are going to increase it in a few days. On of 0 7 very increase Risperdal to 2 mg p.o. b.i.d. later on, almost 8 we creased up to 3 mg p.o. b.i.d. as per med reconciliation form. 3. Continue with medical workout. 4. Reassessment with results. 5. Continue regular observation. 6. Filed for section 7 and 8 since the patient has refused to sign CV. The cord had been continue for next week. Reason for continued inpatient stay Substantial Risk for: inability to function, rapid decompensation and med/psych decompensation Time Spent With Patient Time: Total time managing care of this patient today __20__ minutes.
[2023-03-10] MEDS: Loperamide HCl 2 MG CAPSULE PO (15:34)
[2023-03-10 20:15] VITALS: BP 103/57; PULSE 83; RESP 18; TEMP 36.3; O2SAT 97
[2023-03-10] MEDS: Atorvastatin Calcium 10 MG TABLET PO (20:40)
[2023-03-10] MEDS: Acetaminophen 325 MG TABLET 650 MG PO (20:41)
[2023-03-11 08:00] VITALS: BP 116/57; PULSE 77; RESP 18; TEMP 36.2; O2SAT 97
--- NOTE | 2023-03-11 08:09 | HO.PSYCHPN ---
Subjective Subjective Date of Service: 03/11/23 Reason For Visit: F29 Subjective Notes: Section 7 and Section 8 Interim History: The nursing staff reported the patient had been visible but self isolating minimally engaging with peers and staff due to paranoia. She had irritable and hostile, staff has noticed that she is responding to internal stimuli. She has been having loose stools for the last 3 days due to her anxiety. She receive Atarax last night. On interview the patient was hostile still paranoid. We are going to increase Risperdal to 4 mg p.o. b.i.d. to target psychosis. Mental Status Exam Mental Status Exam Patient Appearance: Appropriate Patient Orientation: Person and Situation Level of Consciousness: Awake and Appropriate Patient Behavior: Appropriate and Cooperative Mood Description: Withdrawn and Angry Affect Description: Labile Patient Cognition Impaired: Yes Ability to Follow Directions: Good Speech Pattern: Clear and Impoverished Hallucinations: Auditory Delusions: Paranoid Ideation Thought Process: Racing and Illogical Thought Content: positive for [place], positive for [place] and positive for Poverty of Content Judgement: Poor Diagnostics Vital Signs (24Hr): Vital Signs - 24 hr 03/10/23 08:10 03/10/23 20:15 Temperature 97.0 F 97.3 F Pulse Rate 89 83 Respiratory Rate 20 18 Blood Pressure 113/63 103/57 L Pulse Oximetry 98 97 Oxygen Delivery Method Room Air Room Air BMI result Body Mass Index 24.5 Medications Medications Current Medications Acetaminophen (Acetaminophen 325 Mg Tablet) 650 mg PO Q6H PRN PRN Reason: Headache/Pain Mild Scale (1-3) Last Admin: 03/10/23 20:41 Dose: 650 mg Al Hydroxide/Mg Hydroxide (Magnesium Hydrox/Alum Hydrox 30 Ml Oral.Susp) 30 ml PO Q6H PRN PRN Reason: Heartburn/Nausea Atorvastatin Calcium (Atorvastatin Calcium 10 Mg Tablet) 10 mg PO BEDTIME ASUNCION Last Admin: 03/10/23 20:40 Dose: 10 mg Benztropine Mesylate (Benztropine Mesylate 0.5 Mg Tablet) 0.5 mg PO BID ASUNCION Last Admin: 03/10/23 20:40 Dose: 0.5 mg Hydroxyzine HCl (Hydroxyzine Hcl 25 Mg Tablet) 25 mg PO Q6H PRN PRN Reason: Anxiety Last Admin: 03/10/23 08:12 Dose: 25 mg Loperamide HCl (Loperamide Hcl 2 Mg Capsule) 2 mg PO Q6H PRN PRN Reason: Diarrhea Last Admin: 03/10/23 15:34 Dose: 2 mg Magnesium Hydroxide (Milk Of Magnesia 30 Ml Oral.Susp) 30 ml PO DAILY PRN PRN Reason: Constipation Risperidone (Risperidone 3 Mg Tablet) 3 mg PO BID ASUNCION Last Admin: 03/10/23 20:40 Dose: 3 mg Trazodone HCl (Trazodone Hcl 50 Mg Tablet) 50 mg PO BEDTIME MRX1 PRN PRN Reason: Insomnia Last Admin: 03/03/23 22:08 Dose: 50 mg Allergies Allergies Allergy/AdvReac Type Severity Reaction Status Date / Time No Known Allergies Allergy Verified 03/01/23 17:58 Assessment & Plan Assessment & Plan (1) Schizophrenia: Status: Acute Code(s): F20.9 - Schizophrenia, unspecified Plan The patient is an elderly descent female with a prior history of schizophrenia who was brought into the facility from the emergency room of [facility] since she was noncompliant with medications for 9 weeks. According to the crisis assessment the patient had relapse on her psychotic symptoms with any inability to take care of herself, losing weight and poor safety awareness. 03/04: Continue current regimen and plans. Add lactulose 15 cc daily for 3 days Plan 1. Gather collateral information. The patient is a very poor historian and we will need to gather more collateral information from her family. 2. Continue Risperdal as prescribed. We are going to increase it in a few days. On of 0 7 very increase Risperdal to 2 mg p.o. b.i.d. later on, almost 8 we creased up to 3 mg p.o. b.i.d. as per med reconciliation form. 3. Continue with medical workout. 4. Reassessment with results. 5. Continue regular observation. 6. Filed for section 7 and 8 since the patient has refused to sign CV. The court had been continue for next week. Reason for continued inpatient stay Substantial Risk for: inability to function, rapid decompensation and med/psych decompensation Time Spent With Patient Time: Total time managing care of this patient today _20___ minutes.
[2023-03-11] MEDS: Benztropine Mesylate 0.5 MG TABLET PO ×2 (08:15→20:25)
[2023-03-11] MEDS: risperiDONE 3 MG TABLET PO (08:15)
[2023-03-11 18:00] VITALS: BP 119/79; PULSE 93; RESP 18; TEMP 36.4; O2SAT 97
[2023-03-11] MEDS: Atorvastatin Calcium 10 MG TABLET PO (20:25)
[2023-03-11] MEDS: traZODone HCL 50 MG TABLET PO (20:25)
[2023-03-11] MEDS: risperiDONE 2 MG TABLET 4 MG PO (20:25)
[2023-03-12 08:00] VITALS: BP 115/57; PULSE 67; RESP 16; TEMP 36.7; O2SAT 95
[2023-03-12] MEDS: Benztropine Mesylate 0.5 MG TABLET PO ×2 (08:04→21:38)
[2023-03-12] MEDS: risperiDONE 2 MG TABLET 4 MG PO ×2 (08:04→21:37)
--- NOTE | 2023-03-12 09:56 | HO.PSYCHPN ---
Subjective Subjective Date of Service: 03/12/23 Reason For Visit: F29 Subjective Notes: Conditional Voluntary Interim History: The nursing staff reported the patient remains disorganized hostile an isolative and he came out in the afternoon. She took trazodone p.r.n. at last night and she slept well. On interview room patient remains hostile and paranoid but not violent, fully compliant with treatment, no side effects with the increased of Risperdal. Mental Status Exam Mental Status Exam Patient Appearance: Well Grooomed and Appropriate Patient Orientation: Person and Situation Level of Consciousness: Awake Patient Behavior: Passive and Belligerent Mood Description: Withdrawn and Hostile Affect Description: Blunted Patient Cognition Impaired: Yes Ability to Follow Directions: Good Speech Pattern: Clear Hallucinations: None Delusions: Paranoid Ideation Thought Process: Distracted and Slowed Thinking Thought Content: positive for [place] Judgement: Poor Diagnostics Vital Signs (24Hr): Vital Signs - 24 hr 03/11/23 18:00 03/12/23 08:00 Temperature 97.6 F 98.0 F Pulse Rate 93 67 Respiratory Rate 18 16 Blood Pressure 119/79 115/57 L Pulse Oximetry 97 95 Oxygen Delivery Method Room Air Room Air BMI result Body Mass Index 24.5 Medications Medications Current Medications Acetaminophen (Acetaminophen 325 Mg Tablet) 650 mg PO Q6H PRN PRN Reason: Headache/Pain Mild Scale (1-3) Last Admin: 03/10/23 20:41 Dose: 650 mg Al Hydroxide/Mg Hydroxide (Magnesium Hydrox/Alum Hydrox 30 Ml Oral.Susp) 30 ml PO Q6H PRN PRN Reason: Heartburn/Nausea Atorvastatin Calcium (Atorvastatin Calcium 10 Mg Tablet) 10 mg PO BEDTIME [facility] Last Admin: 03/11/23 20:25 Dose: 10 mg Benztropine Mesylate (Benztropine Mesylate 0.5 Mg Tablet) 0.5 mg PO BID ASUNCION Last Admin: 03/12/23 08:04 Dose: 0.5 mg Hydroxyzine HCl (Hydroxyzine Hcl 25 Mg Tablet) 25 mg PO Q6H PRN PRN Reason: Anxiety Last Admin: 03/10/23 08:12 Dose: 25 mg Loperamide HCl (Loperamide Hcl 2 Mg Capsule) 2 mg PO Q6H PRN PRN Reason: Diarrhea Last Admin: 03/10/23 15:34 Dose: 2 mg Magnesium Hydroxide (Milk Of Magnesia 30 Ml Oral.Susp) 30 ml PO DAILY PRN PRN Reason: Constipation Risperidone (Risperidone 2 Mg Tablet) 4 mg PO BID ASUNCION Last Admin: 03/12/23 08:04 Dose: 4 mg Trazodone HCl (Trazodone Hcl 50 Mg Tablet) 50 mg PO BEDTIME MRX1 PRN PRN Reason: Insomnia Last Admin: 03/11/23 20:25 Dose: 50 mg Allergies Allergies Allergy/AdvReac Type Severity Reaction Status Date / Time No Known Allergies Allergy Verified 03/01/23 17:58 Assessment & Plan Assessment & Plan (1) Schizophrenia: Status: Acute Code(s): F20.9 - Schizophrenia, unspecified Plan The patient is an elderly descent female with a prior history of schizophrenia who was brought into the facility from the emergency room of [facility] since she was noncompliant with medications for 9 weeks. According to the crisis assessment the patient had relapse on her psychotic symptoms with any inability to take care of herself, losing weight and poor safety awareness. 03/04: Continue current regimen and plans. Add lactulose 15 cc daily for 3 days Plan 1. Gather collateral information. The patient is a very poor historian and we will need to gather more collateral information from her family. 2. Continue Risperdal as prescribed. We are going to increase it in a few days. We increased Risperdal to 2 mg p.o. b.i.d. later on, we increased up to 3 mg p.o. b.i.d. as per med reconciliation form. On almost 12 we increase it up to 4 mg p.o. b.i.d. since the patient remains psychotic. 3. Continue with medical workout. 4. Reassessment with results. 5. Continue regular observation. 6. Filed for section 7 and 8 since the patient has refused to sign CV. The court had been continue for next week. Reason for continued inpatient stay Substantial Risk for: inability to function, rapid decompensation and med/psych decompensation Time Spent With Patient Time: Total time managing care of this patient today __20__ minutes.
[2023-03-12 18:41] VITALS: BP 141/56; PULSE 95; RESP 18; TEMP 36.4; O2SAT 98
[2023-03-12] MEDS: Atorvastatin Calcium 10 MG TABLET PO (21:38)
[2023-03-12] MEDS: hydrOXYzine HCL 25 MG TABLET PO (21:41)
[2023-03-13 08:15] VITALS: BP 110/61; PULSE 98; RESP 20; TEMP 35.8; O2SAT 98
[2023-03-13] MEDS: Benztropine Mesylate 0.5 MG TABLET PO ×2 (08:16→21:13)
[2023-03-13] MEDS: risperiDONE 2 MG TABLET 4 MG PO ×2 (08:16→21:13)
--- NOTE | 2023-03-13 13:03 | HO.PSYCHPN ---
Subjective Subjective Date of Service: 03/13/23 Reason For Visit: F29 Subjective Notes: Section 7 and Section 8 Interim History: The nursing staff reported the patient had been isolated with minimal participation but she looks less angry than before. She slept well last night. The protective services social worker reported the patient lives alone with ancillary services. On interview the patient denies new symptoms still internally preoccupied but no evidence of psychotic agitation. Mental Status Exam Mental Status Exam Patient Appearance: Well Grooomed and Appropriate Patient Orientation: Person and Situation Level of Consciousness: Awake Patient Behavior: Guarded and Passive Mood Description: Withdrawn Affect Description: Blunted Patient Cognition Impaired: Yes Ability to Follow Directions: Good Speech Pattern: Clear Hallucinations: Auditory Delusions: Paranoid Ideation Thought Process: Distracted and Slowed Thinking Thought Content: positive for [place] and positive for Poverty of Content Judgement: Fair Diagnostics Vital Signs (24Hr): Vital Signs - 24 hr 03/12/23 18:41 03/13/23 08:15 Temperature 97.6 F 96.5 F L Pulse Rate 95 98 Respiratory Rate 18 20 Blood Pressure 141/56 H 110/61 Pulse Oximetry 98 98 Oxygen Delivery Method Room Air Room Air BMI result Body Mass Index 24.5 Medications Medications Current Medications Acetaminophen (Acetaminophen 325 Mg Tablet) 650 mg PO Q6H PRN PRN Reason: Headache/Pain Mild Scale (1-3) Last Admin: 03/10/23 20:41 Dose: 650 mg Al Hydroxide/Mg Hydroxide (Magnesium Hydrox/Alum Hydrox 30 Ml Oral.Susp) 30 ml PO Q6H PRN PRN Reason: Heartburn/Nausea Atorvastatin Calcium (Atorvastatin Calcium 10 Mg Tablet) 10 mg PO BEDTIME ASUNCION Last Admin: 03/12/23 21:38 Dose: 10 mg Benztropine Mesylate (Benztropine Mesylate 0.5 Mg Tablet) 0.5 mg PO BID ASUNCION Last Admin: 03/13/23 08:16 Dose: 0.5 mg Hydroxyzine HCl (Hydroxyzine Hcl 25 Mg Tablet) 25 mg PO Q6H PRN PRN Reason: Anxiety Last Admin: 03/12/23 21:41 Dose: 25 mg Loperamide HCl (Loperamide Hcl 2 Mg Capsule) 2 mg PO Q6H PRN PRN Reason: Diarrhea Last Admin: 03/10/23 15:34 Dose: 2 mg Magnesium Hydroxide (Milk Of Magnesia 30 Ml Oral.Susp) 30 ml PO DAILY PRN PRN Reason: Constipation Risperidone (Risperidone 2 Mg Tablet) 4 mg PO BID ASUNCION Last Admin: 03/13/23 08:16 Dose: 4 mg Trazodone HCl (Trazodone Hcl 50 Mg Tablet) 50 mg PO BEDTIME MRX1 PRN PRN Reason: Insomnia Last Admin: 03/11/23 20:25 Dose: 50 mg Allergies Allergies Allergy/AdvReac Type Severity Reaction Status Date / Time No Known Allergies Allergy Verified 03/01/23 17:58 Assessment & Plan Assessment & Plan (1) Schizophrenia: Status: Acute Code(s): F20.9 - Schizophrenia, unspecified Plan The patient is an elderly descent female with a prior history of schizophrenia who was brought into the facility from the emergency room of [facility] since she was noncompliant with medications for 9 weeks. According to the crisis assessment the patient had relapse on her psychotic symptoms with any inability to take care of herself, losing weight and poor safety awareness. 03/04: Continue current regimen and plans. Add lactulose 15 cc daily for 3 days Plan 1. Gather collateral information. The patient is a very poor historian and we will need to gather more collateral information from her family. 2. Continue Risperdal as prescribed. We are going to increase it in a few days. We increased Risperdal to 2 mg p.o. b.i.d. later on, we increased up to 3 mg p.o. b.i.d. as per med reconciliation form. On almost 12 we increase it up to 4 mg p.o. b.i.d. since the patient remains psychotic. 3. Continue with medical workout. 4. Reassessment with results. 5. Continue regular observation. 6. Filed for section 7 and 8 since the patient has refused to sign CV. The court had been continue for next week. Reason for continued inpatient stay Substantial Risk for: inability to function, rapid decompensation and med/psych decompensation Time Spent With Patient Time: Total time managing care of this patient today __20__ minutes.
[2023-03-13 18:00] VITALS: BP 112/67; PULSE 90; RESP 18; TEMP 36.6; O2SAT 98
[2023-03-13] MEDS: Atorvastatin Calcium 10 MG TABLET PO (21:13)
[2023-03-13] MEDS: traZODone HCL 50 MG TABLET PO (21:13)
[2023-03-13 21:22] LABS: Glucose, Whole Blood 145 mg/dL (60-115)
[2023-03-14 08:31] VITALS: BP 120/66; PULSE 98; RESP 18; TEMP 37; O2SAT 96
[2023-03-14] MEDS: risperiDONE 2 MG TABLET 4 MG PO ×2 (08:34→20:20)
[2023-03-14] MEDS: Benztropine Mesylate 0.5 MG TABLET PO ×2 (08:34→20:20)
[2023-03-14] MEDS: Acetaminophen 325 MG TABLET 650 MG PO (08:35)
--- NOTE | 2023-03-14 12:37 | P.PNPSI_ITS ---
Subjective Subjective Date of Service: 03/14/23 Reason For Visit: F29 Subjective Notes: Section 7 and Section 8 Interim History: The nursing staff reported that she has been isolative, less irritable, tolerating more the staff. She remains paranoid, compliant with medications. The nursing home social worker reported that her son will come today and discuss d/c planning. Yesterday, OT reported that it was the first time that she attended to groups. On interview, she reported no new symptoms. Mental Status Exam Mental Status Exam Patient Appearance: Well Grooomed and Appropriate Patient Orientation: Person and Situation Level of Consciousness: Awake and Appropriate Patient Behavior: Guarded and Cooperative Mood Description: Calm Affect Description: Constricted Patient Cognition Impaired: Yes Ability to Follow Directions: Fair Speech Pattern: Clear Hallucinations: None Delusions: Paranoid Ideation Thought Process: Linear Thought Content: positive for [place] and positive for Poverty of Content Judgement: Poor Diagnostics Vital Signs (24Hr): Vital Signs - 24 hr 03/13/23 18:00 03/14/23 08:31 Temperature 97.8 F 98.6 F Pulse Rate 90 98 Respiratory Rate 18 18 Blood Pressure 112/67 120/66 Pulse Oximetry 98 96 Oxygen Delivery Method Room Air Room Air BMI result Body Mass Index 24.5 Labs Labs: Laboratory Results - last 48 hr 03/13/23 21:16 POC Glucose 145 H Medications Medications Current Medications Acetaminophen (Acetaminophen 325 Mg Tablet) 650 mg PO Q6H PRN PRN Reason: Headache/Pain Mild Scale (1-3) Last Admin: 03/14/23 08:35 Dose: 650 mg Al Hydroxide/Mg Hydroxide (Magnesium Hydrox/Alum Hydrox 30 Ml Oral.Susp) 30 ml PO Q6H PRN PRN Reason: Heartburn/Nausea Atorvastatin Calcium (Atorvastatin Calcium 10 Mg Tablet) 10 mg PO BEDTIME ASUNCION Last Admin: 03/13/23 21:13 Dose: 10 mg Benztropine Mesylate (Benztropine Mesylate 0.5 Mg Tablet) 0.5 mg PO BID [facility] Last Admin: 03/14/23 08:34 Dose: 0.5 mg Hydroxyzine HCl (Hydroxyzine Hcl 25 Mg Tablet) 25 mg PO Q6H PRN PRN Reason: Anxiety Last Admin: 03/12/23 21:41 Dose: 25 mg Loperamide HCl (Loperamide Hcl 2 Mg Capsule) 2 mg PO Q6H PRN PRN Reason: Diarrhea Last Admin: 03/10/23 15:34 Dose: 2 mg Magnesium Hydroxide (Milk Of Magnesia 30 Ml Oral.Susp) 30 ml PO DAILY PRN PRN Reason: Constipation Risperidone (Risperidone 2 Mg Tablet) 4 mg PO BID ASUNCION Last Admin: 03/14/23 08:34 Dose: 4 mg Trazodone HCl (Trazodone Hcl 50 Mg Tablet) 50 mg PO BEDTIME MRX1 PRN PRN Reason: Insomnia Last Admin: 03/13/23 21:13 Dose: 50 mg Allergies Allergies Allergy/AdvReac Type Severity Reaction Status Date / Time No Known Allergies Allergy Verified 03/01/23 17:58 Assessment & Plan Assessment & Plan (1) Schizophrenia: Status: Acute Code(s): F20.9 - Schizophrenia, unspecified Plan The patient is an elderly descent female with a prior history of schizophrenia who was brought into the facility from the emergency room of [facility] since she was noncompliant with medications for 9 weeks. According to the crisis assessment the patient had relapse on her psychotic symptoms with any inability to take care of herself, losing weight and poor safety awareness. 03/04: Continue current regimen and plans. Add lactulose 15 cc daily for 3 days Plan 1. Gather collateral information. The patient is a very poor historian and we will need to gather more collateral information from her family. 2. Continue Risperdal as prescribed. We are going to increase it in a few days. We increased Risperdal to 2 mg p.o. b.i.d. later on, we increased up to 3 mg p.o. b.i.d. as per med reconciliation form. On almost 12 we increase it up to 4 mg p.o. b.i.d. since the patient remains psychotic. 3. Continue with medical workout. 4. Reassessment with results. 5. Continue regular observation. 6. Filed for section 7 and 8 since the patient has refused to sign CV. The c ourt had been continue for next week. Reason for continued inpatient stay Substantial Risk for: inability to function, rapid decompensation and med/psych decompensation Time Spent With Patient Time: Total time managing care of this patient today __20__ minutes.
[2023-03-14] MEDS: Loperamide HCl 2 MG CAPSULE PO ×2 (16:49→20:20)
[2023-03-14 18:00] VITALS: BP 113/54; PULSE 100; RESP 17; TEMP 36.4; O2SAT 96
[2023-03-14] MEDS: traZODone HCL 50 MG TABLET PO (20:20)
[2023-03-14] MEDS: Atorvastatin Calcium 10 MG TABLET PO (20:20)
[2023-03-14 20:52] LABS: Glucose, Whole Blood 125 mg/dL (60-115)
[2023-03-15 08:21] VITALS: BP 115/71; PULSE 79; RESP 20; TEMP 36.1; O2SAT 97
[2023-03-15] MEDS: risperiDONE 2 MG TABLET 4 MG PO ×2 (08:22→20:27)
[2023-03-15] MEDS: Benztropine Mesylate 0.5 MG TABLET PO ×2 (08:22→20:28)
[2023-03-15] MEDS: Loperamide HCl 2 MG CAPSULE PO ×2 (08:25→20:28)
--- NOTE | 2023-03-15 12:31 | HO.PSYCHPN ---
Subjective Subjective Date of Service: 03/15/23 Reason For Visit: F29 Subjective Notes: Conditional Voluntary Interim History: The nursing staff reported the patient looks more relaxed but still internally preoccupied. Yesterday her son came and talked with the executive secretary social welfare in order to help the patient even after sedation for aftercare. The patient remains internally preoccupied but not much better less psychotic. We are planning to discharge her tomorrow 2 PM. Mental Status Exam Mental Status Exam Patient Appearance: Well Grooomed and Appropriate Patient Orientation: Person and Situation Level of Consciousness: Awake and Appropriate Patient Behavior: Guarded and Passive Mood Description: Withdrawn Affect Description: Constricted Patient Cognition Impaired: Yes Ability to Follow Directions: Good Speech Pattern: Clear Hallucinations: None Delusions: Paranoid Ideation Thought Process: Distracted and Slowed Thinking Thought Content: positive for [place] and positive for Thought Blocking Judgement: Fair Diagnostics Vital Signs (24Hr): Vital Signs - 24 hr 03/14/23 18:00 03/15/23 08:21 Temperature 97.5 F 97.0 F Pulse Rate 100 79 Respiratory Rate 17 20 Blood Pressure 113/54 L 115/71 Pulse Oximetry 96 97 Oxygen Delivery Method Room Air Room Air BMI result Body Mass Index 24.5 Labs Labs: Laboratory Results - last 48 hr 03/13/23 03/14/23 21:16 20:28 POC Glucose 145 H 125 H Medications Medications Current Medications Acetaminophen (Acetaminophen 325 Mg Tablet) 650 mg PO Q6H PRN PRN Reason: Headache/Pain Mild Scale (1-3) Last Admin: 03/14/23 08:35 Dose: 650 mg Al Hydroxide/Mg Hydroxide (Magnesium Hydrox/Alum Hydrox 30 Ml Oral.Susp) 30 ml PO Q6H PRN PRN Reason: Heartburn/Nausea Atorvastatin Calcium (Atorvastatin Calcium 10 Mg Tablet) 10 mg PO BEDTIME ASUNCION Last Admin: 03/14/23 20:20 Dose: 10 mg Benztropine Mesylate (Benztropine Mesylate 0.5 Mg Tablet) 0.5 mg PO BID ASUNCION Last Admin: 03/15/23 08:22 Dose: 0.5 mg Hydroxyzine HCl (Hydroxyzine Hcl 25 Mg Tablet) 25 mg PO Q6H PRN PRN Reason: Anxiety Last Admin: 03/12/23 21:41 Dose: 25 mg Loperamide HCl (Loperamide Hcl 2 Mg Capsule) 2 mg PO Q6H PRN PRN Reason: Diarrhea Last Admin: 03/15/23 08:25 Dose: 2 mg Magnesium Hydroxide (Milk Of Magnesia 30 Ml Oral.Susp) 30 ml PO DAILY PRN PRN Reason: Constipation Risperidone (Risperidone 2 Mg Tablet) 4 mg PO BID ASUNCION Last Admin: 03/15/23 08:22 Dose: 4 mg Trazodone HCl (Trazodone Hcl 50 Mg Tablet) 50 mg PO BEDTIME MRX1 PRN PRN Reason: Insomnia Last Admin: 03/14/23 20:20 Dose: 50 mg Allergies Allergies Allergy/AdvReac Type Severity Reaction Status Date / Time No Known Allergies Allergy Verified 03/01/23 17:58 Assessment & Plan Assessment & Plan (1) Schizophrenia: Status: Acute Code(s): F20.9 - Schizophrenia, unspecified Plan The patient is an elderly descent female with a prior history of schizophrenia who was brought into the facility from the emergency room of [facility] since she was noncompliant with medications for 9 weeks. According to the crisis assessment the patient had relapse on her psychotic symptoms with any inability to take care of herself, losing weight and poor safety awareness. 03/04: Continue current regimen and plans. Add lactulose 15 cc daily for 3 days Plan 1. Gather collateral information. The patient is a very poor historian and we will need to gather more collateral information from her family. 2. Continue Risperdal as prescribed. We are going to increase it in a few days. We increased Risperdal to 2 mg p.o. b.i.d. later on, we increased up to 3 mg p.o. b.i.d. as per med reconciliation form. On almost 12 we increase it up to 4 mg p.o. b.i.d. since the patient remains psychotic. 3. Continue with medical workout. 4. Reassessment with results. 5. Continue regular observation. 6. Filed for section 7 and 8 since the patient has refused to sign CV. The court had been continue for next week. Reason for continued inpatient stay Substantial Risk for: inability to function, rapid decompensation and med/psych decompensation Time Spent With Patient Time: Total time managing care of this patient today _20___ minutes.
--- NOTE | 2023-03-15 12:42 | P.DS_ITS ---
DS: Providers Provider Date of Service: 03/16/23 Date of admission: 03/01/23 18:30 Date of discharge: 03/16/23 Primary care physician: Unknown Physician Consults: 03/01/23 21:26 Consult to Hospitalist Routine Comment: Consulting Provider: Hospitalist Reason For Exam: [facility] transfer DS: Diagnosis Discharge Diagnosis (1) Schizophrenia: Status: Acute Mental Status Exam Mental Status Exam Patient Appearance: Well Grooomed and Appropriate Patient Orientation: Person and Situation Level of Consciousness: Awake and Appropriate Patient Behavior: Guarded and Passive Mood Description: Calm Affect Description: Constricted Patient Cognition Impaired: Yes Ability to Follow Directions: Good Speech Pattern: Clear Hallucinations: None Delusions: Ideas of Reference Thought Process: Distracted Thought Content: positive for Circumstantial Judgement: Fair Data Data Completed and Pending Completed studies during hospitalization [Text1]: 03/13/23 03/14/23 21:16 20:28 POC Glucose 145 H 125 H DS: Summary Hospital Course Hospital Course: The patient is a 72-year-old Mong[place]ian female with a prior history of schizophrenia who was brought to the emergency room of another hospital since her family called crisis stating the patient had been on compliant with medic ations for 9 months and she had decompensated with disorganized behavior, unable to take care herself, paranoia and poor self awareness. She was brought to the emergency room, medically clear and transferring to this facility for psychiatric stabilization. Please see the HPI of the admission note for further details. On admission, the patient admitted that she had not been taking any medications for several months and she admitted all some auditory hallucinations with derogatory content, she was internally preoccupied and very paranoid. Even though that she was very scared, she did not show any violent behavior. She was so paranoid that she refused to sign any conditional voluntary or any other paperwork to give us consent to contact her family. We started on Risperdal 1 mg p.o. t.i.d. titrated up slowly to 4 mg with further ability. The patient reported resolution of auditory hallucinations after 8 days of treatment with Risperdal but she was always internally preoccupied and not interacting with staff even though that she had been in the common areas. Her son came and visited her and he reported that she was nearly at baseline, we had to filed for Section 7 and 8 since the patient refused to sign a conditional voluntary and she was on a [address] case was continued for next week.. Since there were no safety concerns discharge planning was discussed. Time spent discussing smoking cessation with patient: 3 to 10 minutes Status at Discharge Cognitive/behavioral status at discharge: Impaired at baseline Functional status at discharge: independent ambulation Overall status at discharge: patient is back to baseline Time Spent with Patient Time attestation: Total time managing care of this patient today __20__ minutes. Time spent: Less than 30 minutes Discharge Plan Discharge Anticipated Discharge Date/Time: 03/16/23 13:00 Patient Disposition: Home Health Service Discharge Diagnosis: Schizophrenia Neuro cognitive disorder Referrals: [facility] [Other] - 03/17/23 2:30 pm ([facility] Behavioral Health clinician Melody Alvares will contact you by phone for follow up call and to schedule home visit from [facility] clinician on 03/17/23 at 2:30pm. please be available by phone for the call. You [facility] Stone Spreader Operator to also follow up with after discharge by phone. ) Dr Carrera [facility] PCP [Other] - 1 Week [facility] [Other] - 03/17/23 (Your start of care for Visiting Nurses visits is 03/17/23. Please be available for visit. ) [facility] [Other] - 03/20/23 1:00 pm (Your have a virtual psychiatry appointment scheduled for Monday03/20/23 at 1PM with Lesly Martin. ) Garland Solomon Therapist [facility] [Other] - 03/21/23 10:00 am ([facility] is now requesting clients attend walk in hours to request follow up therapy appointments with your therapist. Please go to [facility] at [address] [place] [address] on Monday or from 10am- 12pm to request therapy appointment with Garland. Please bring hospital discharge paperwork. ) Discharge Medications: New acetaminophen 325 mg Tablet 650 mg PO Q6H PRN (Reason: Headache/Pain Mild Scale (1-3)) Qty: 30 0RF atorvastatin 10 mg Tablet 10 mg PO BEDTIME 30 Days Qty: 30 0RF benztropine 0.5 mg Tablet 0.5 mg PO BID 30 Days Qty: 60 0RF hydroxyzine HCl 25 mg Tablet 25 mg PO Q6H PRN (Reason: Anxiety) 30 Days Qty: 60 0RF risperidone 4 mg tablet 4 mg PO BID 30 Days Qty: 60 0RF loperamide 2 mg Capsule 2 mg PO Q6H PRN (Reason: Diarrhea) 30 Days Qty: 60 0RF trazodone 50 mg Tablet 50 mg PO BEDTIME MRX1 PRN (Reason: Insomnia) 30 Days Qty: 30 0RF Discharge Orders: Discharge Order (Routine); Ordered 03/16/23 Ordered By: Sarabjit Banks Diet: Advance to usual diet Activity on Discharge: As tolerated Stand Alone Forms: Patient Portal Discharge page Care Plan Goals: Care plan goals achieved in this admission Health Concerns: Continue with regular providers as an outpatient Plan of Treatment: Continue 6 psychiatric treatment as an outpatient Assessment: Elderly [place]ian female with a past history of schizophrenia admitted for exacerbation of psychosis in the context of noncompliance with medications for 9 that 9 months. She was restarted Risperdal titrated up to 4 mg p.o. b.i.d. with for improvement of her psychosis, no safety concerns at the moment of discharge.
[2023-03-15 18:00] VITALS: BP 137/62; PULSE 87; RESP 18; O2SAT 97
[2023-03-15] MEDS: traZODone HCL 50 MG TABLET PO (20:28)
[2023-03-15] MEDS: hydrOXYzine HCL 25 MG TABLET PO (20:28)
[2023-03-15] MEDS: Atorvastatin Calcium 10 MG TABLET PO (20:28)
[2023-03-16 06:00] VITALS: BP 106/60; PULSE 96; RESP 18; TEMP 36.1; O2SAT 95
[2023-03-16] MEDS: Benztropine Mesylate 0.5 MG TABLET PO (08:23)
[2023-03-16] MEDS: risperiDONE 2 MG TABLET 4 MG PO (08:23)
[2023-03-16] MEDS: Loperamide HCl 2 MG CAPSULE PO (08:26)
[2023-03-16] MEDS: Acetaminophen 325 MG TABLET 650 MG PO (08:30)
== END 2023-03-16 13:50 | disposition home health service (06) | DRG 885 ==
PROVIDERS: Clinical Nurse Specialist Psychiatric/Mental Health, Adult; Admitting Provider Psychiatry & Neurology Psychiatry; Visit Provider Psychiatry & Neurology Psychiatry
DX: F20.9 Schizophrenia, unspecified (principal); F17.210 Nicotine dependence, cigarettes, uncomplicated; Z71.6 Tobacco abuse counseling; I10 Essential (primary) hypertension; E11.9 Type 2 diabetes mellitus without complications; E78.5 Hyperlipidemia, unspecified; K21.9 Gastro-esophageal reflux disease without esophagitis; Z91.148 Patient's other noncompliance with medication regimen for other reason; Z79.899 Other long term (current) drug therapy
CPT/HCPCS: 36415; 80061; 82607; 82746; 82947; 83036; 83735

== ENCOUNTER → 2023-03-01 18:30 | Outpatient (BNV) | payer OTHER, SELFPAY | PROVIDERS: Admitting Provider Psychiatry & Neurology Psychiatry; Visit Provider Psychiatry & Neurology Psychiatry | DX: F20.0 Paranoid schizophrenia (principal) | CPT/HCPCS: 90792; 99231; 99232; 99238 ==